=== PATIENT | female | born 1940 | race Caucasian/White ===

== ENCOUNTER 2016-12-11 14:14 | Observation (INO) | payer MEDICARE, BC ==
[~2016-12-11] VITALS: Ht 165.1 cm; Wt 85.5 kg
[2016-12-11] MEDS ORDERED: COUMADIN 77.5 MG/TAB PO (14:39)
[2016-12-11] MEDS ORDERED: PRINIVIL40 MG PO (14:40)
[2016-12-11] MEDS ORDERED: PRILOSEC 20MG20 MG PO (14:40)
[2016-12-11] MEDS ORDERED: PRAVACHOL 20MG20 MG PO (14:40)
[2016-12-11] MEDS ORDERED: NORVASC 5MG5 MG/TAB PO (14:40)
[2016-12-11 17:11] LABS: ADJUSTED CALCIUM 9.4 mg/dL (8.4-10.2); BILIRUBIN,TOTAL 0.7 mg/dL (0.0-1.0); CALCIUM 9.4 mg/dL (8.4-10.2); CREATININE, serum 0.84 mg/dL (0.52-1.25); TOTAL PROTEIN 7.1 gm/dL (6.4-8.2)
[2016-12-11 17:12] LABS: BASO # 0.1 (0.0-0.2); BASO % 0.6 % (0.0-2.0); EOS # 0.1 (0.0-0.7); EOS % 0.7 % (0-4.0); GRAN # 8.8 (1.4-6.5); GRAN % 77.2 % (42.2-75.2); HEMATOCRIT 44.7 % (37.0-47.0); HEMOGLOBIN 14.7 g/dl (12.5-16.0); LYMPH # 1.6 (1.2-3.4); LYMPH % 14.2 % (20.0-51.0); MEAN CELL VOLUME 89 fl (80.0-100.0); MEAN CORPUSCULAR HEMOGLOBIN 29 pg (27.0-31.0); MEAN CORPUSCULAR HGB CONC 33 g/dl (33.0-37.0); MEAN PLATELET VOLUME 13.5 fl (7.4-10.4); MONO # 0.8 (0.1-0.6); MONO % 6.8 % (1.7-9.3); PLATELET COUNT 124 K/mm3 (130-400); RED BLOOD COUNT 5.04 M/mm3 (4.10-5.30); REDCELL DISTRIBUTION WIDTH-CV 13.7 % (11.5-14.5); WHITE BLOOD COUNT 11.4 K/mm3 (4.8-10.8)
[2016-12-11 17:36] LABS: INR 2.1 (0.8-3.0)
[2016-12-11 21:38] VITALS: BP 146/75; PULSE 79; TEMP 98.7
[2016-12-12] MEDS ORDERED: CENTRUM SILVER1 TA2 PO (00:04)
[2016-12-12] MEDS ORDERED: B COMPLEX & B121 TAB PO (00:05)
[2016-12-12] MEDS ORDERED: CO Q-1010 M1 PO (00:06)
[2016-12-12] MEDS ORDERED: VITAL-D1 TAB PO (00:07)
[2016-12-12] MEDS ORDERED: MASON NATURAL1200 MG PO (00:08)
[2016-12-12 00:35] VITALS: BP 165/83; PULSE 88; TEMP 98.1
[2016-12-12 03:42] VITALS: BP 124/57; PULSE 80; TEMP 98.6
[2016-12-12 08:15] VITALS: BP 124/79; PULSE 82; TEMP 97.9
[2016-12-12 14:01] VITALS: BP 139/67; PULSE 81; TEMP 98.4
[2016-12-12 14:16] LABS: PH 7 (5-8); SQUAMOUS EPITHELIAL 0-2 /hpf; URINE APPEARANCE Clear; URINE BACTERIA None Seen /hpf; URINE BILIRUBIN Negative (NEGATIVE); URINE BLOOD Negative (NEGATIVE); URINE COLOR Straw; URINE GLUCOSE Negative (NEGATIVE); URINE KETONE Trace (NEGATIVE); URINE RBC 0-2 /hpf; URINE UROBILINOGEN Negative (NEGATIVE); URINE WBC 0-2 /hpf
[2016-12-12 16:13] VITALS: BP 139/73; PULSE 78
[2016-12-12 20:00] VITALS: BP 121/68; PULSE 67; TEMP 100.3
[2016-12-13] VITALS (7 sets, daily range): BP systolic 108–146; BP diastolic 44–81; PULSE 70–90; TEMP 97.6–99.1
[2016-12-13 09:24] LABS: BASO # 0.1 (0.0-0.2); BASO % 0.7 % (0.0-2.0); EOS # 0.3 (0.0-0.7); EOS % 3.6 % (0-4.0); GRAN # 6.6 (1.4-6.5); GRAN % 69.4 % (42.2-75.2); HEMATOCRIT 42.8 % (37.0-47.0); HEMOGLOBIN 13.8 g/dl (12.5-16.0); LYMPH # 1.6 (1.2-3.4); MEAN CELL VOLUME 91 fl (80.0-100.0); MEAN CORPUSCULAR HEMOGLOBIN 29 pg (27.0-31.0); MEAN CORPUSCULAR HGB CONC 32 g/dl (33.0-37.0); MEAN PLATELET VOLUME 13.3 fl (7.4-10.4); MONO # 0.9 (0.1-0.6); PLATELET COUNT 107 K/mm3 (130-400); RED BLOOD COUNT 4.73 M/mm3 (4.10-5.30); WHITE BLOOD COUNT 9.5 K/mm3 (4.8-10.8)
[2016-12-13 09:35] LABS: INR 2.4 (0.8-3.0); PROTHROMBIN TIME 27.8 SECONDS (9.7-12.8)
[2016-12-13 09:38] LABS: CALCIUM 8.9 mg/dL (8.4-10.2); CREATININE, serum 0.68 mg/dL (0.52-1.25); POTASSIUM 3.7 mmol/L (3.4-5.0)
[2016-12-14 04:06] VITALS: BP 138/76; PULSE 82; TEMP 98
[2016-12-14 07:33] VITALS: BP 148/79; PULSE 89; TEMP 98.6
[2016-12-14] MEDS ORDERED: NORCO 325 MG-51 TAB PO (09:29)
[2016-12-14 11:28] VITALS: BP 126/61; PULSE 76; TEMP 97.9
== END 2016-12-14 18:35 ==
LOC: COL.ER 14:14 → MEDICAL 19:10
PROVIDERS: Emergency Medicine; Family Medicine; Nurse Practitioner Family
DX: S72.051A Unspecified fracture of head of right femur, initial encounter for closed fracture (principal); W17.89XA Other fall from one level to another, initial encounter; Z79.01 Long term (current) use of anticoagulants; E78.5 Hyperlipidemia, unspecified; Z96.643 Presence of artificial hip joint, bilateral; I10 Essential (primary) hypertension
CPT/HCPCS: 99232-AI; G0378; G8978-GP; G8979-GP; G8980-GP; G8987-GO; G8988-GO; J1170; J1885; J2405; J3010; J7030

== ENCOUNTER 2016-12-14 15:45 | Inpatient (IN) | payer MEDICARE, BC ==
[~2016-12-14] VITALS: Ht 162.6 cm; Wt 84.6 kg
[~2016-12-14 15:45] MED LIST: B COMPLEX & B121 TAB PO; CENTRUM SILVER1 TA2 PO; CO Q-1010 M1 PO; COUMADIN 77.5 MG/TAB PO; MASON NATURAL1200 MG PO; NORCO 325 MG-51 TAB PO; NORVASC 5MG5 MG/TAB PO; PRAVACHOL 20MG20 MG PO; PRILOSEC 20MG20 MG PO; PRINIVIL40 MG PO; VITAL-D1 TAB PO
[2016-12-14 18:27] VITALS: BP 150/70; PULSE 87; TEMP 99.5
[2016-12-15 05:00] VITALS: BP 155/82; PULSE 100; TEMP 97.2
[2016-12-15 16:33] VITALS: BP 126/73; PULSE 86; TEMP 98.7
[2016-12-16 04:11] VITALS: BP 134/80; PULSE 93; TEMP 98.1
[2016-12-16 15:53] VITALS: BP 115/62; PULSE 85; TEMP 97.5
[2016-12-17 06:00] VITALS: BP 127/64; PULSE 86; TEMP 97.6
[2016-12-17 16:35] VITALS: BP 120/68; PULSE 86; TEMP 98.1
[2016-12-18 04:41] VITALS: BP 130/65; PULSE 80; TEMP 99.2
[2016-12-18 17:09] VITALS: BP 143/67; PULSE 81; TEMP 97.2
[2016-12-19 06:07] VITALS: BP 143/67; PULSE 81; TEMP 98
[2016-12-19 16:53] VITALS: BP 131/73; PULSE 88; TEMP 97.8
[2016-12-20 06:00] VITALS: BP 129/63; PULSE 78; TEMP 97.4
[2016-12-20 17:01] VITALS: BP 140/70; PULSE 79; TEMP 97.7
[2016-12-21 06:10] VITALS: BP 139/69; PULSE 93; TEMP 98.2
[2016-12-21 07:42] LABS: PROTHROMBIN TIME 35.5 SECONDS (9.7-12.8)
[2016-12-21 07:50] LABS: INR 3.1 (0.8-3.0)
[2016-12-21 16:05] VITALS: BP 128/59; PULSE 77; TEMP 97.7
[2016-12-22 07:12] VITALS: BP 147/78; PULSE 84; TEMP 98
[2016-12-22] MEDS ORDERED: COUMADIN 6MG6 MG/TAB PO (11:42)
[2016-12-22] MEDS ORDERED: TYLENOL 325MG325 MG PO (11:42)
[2016-12-22] MEDS ORDERED: ZOFRAN 4MG T4 MG/TAB PO (11:43)
[2016-12-22] MEDS ORDERED: ULTRAM 50MG TAB50 MG PO (11:45)
[2016-12-22] MEDS ORDERED: VITAMIN D 1001000 IU PO (11:45)
== END 2016-12-22 14:45 | disposition home health service (06) | DRG 561 ==
PROVIDERS: Internal Medicine
DX: S72.001D Fracture of unspecified part of neck of right femur, subsequent encounter for closed fracture with routine healing (principal); I10 Essential (primary) hypertension; I48.0 Paroxysmal atrial fibrillation; Z79.01 Long term (current) use of anticoagulants
CPT/HCPCS: 99222-AI; 99232-AI; 99239